=== PATIENT | male | born 1980 | race Two or more races ===

== ENCOUNTER 2023-10-07 06:17 | Emergency (ER) | payer BC | END 2023-10-07 12:45 | disposition home or self-care (01) | LOC: JD.ED 06:17 | DX: S76.212A Strain of adductor muscle, fascia and tendon of left thigh, initial encounter (principal); X58.XXXA Exposure to other specified factors, initial encounter | CPT/HCPCS: 76870; 76870-26; 93975; 99282; 99284 ==